=== PATIENT | male | born 2005 | race African-American/Black ===

== ENCOUNTER 2024-11-14 14:48 | Emergency (ER) | payer OTHER, SELFPAY ==
[2024-11-14 15:02] VITALS: BP 118/62; PULSE 83; RESP 16; TEMP 36.6; O2SAT 97; BMI 24.3
--- NOTE | 2024-11-14 15:05 | EKG_ITS ---
[address] [address] Test Date: 2024-11-14 Pat Name: Eliel Tate Department: [facility] Room: Gender: Male Automatic Developer: MARTY : 2005 Requested By: Order Number: [id number] Reading MD: Hernandez Epps MD Measurements Intervals [place] Rate: 81 P: 36 IL: 146 QRS: 63 QRSD: 84 T: 51 QT: 340 QTc: 394 Interpretive Statements Normal sinus rhythm Electronically Signed On 11-14-2024 16:57:05 PDT by Hernandez Epps MD
[2024-11-14 22:02] VITALS: BP 128/61; PULSE 62; RESP 14; TEMP 37.4; O2SAT 100
[2024-11-14 23:16] LABS: Add Manual Diff / Slide Review NO; Basophils Absolute Auto 200 /uL (0-100); Basophils Percent Auto 1.4 % (0-2); Eosinophils Absolute Auto 600 /uL (0-450); Eosinophils Percent Auto 5.4 % (2-4); Hematocrit 42.4 % (41-53); Hemoglobin 14.1 g/dL (13.5-17.5); Lymphocytes Absolute Auto 1900 /uL (1100-4500); Lymphocytes Percent Auto 16.3 % (25-40); Mean Corpuscular HGB Conc 33.1 % (30-36); Mean Corpuscular Volume 84.5 fL (80-100); Monocytes Absolute Auto 1200 /uL (0-900); Neutrophils Absolute Auto 8000 /uL (1500-7000); Neutrophils Percent Auto 66.9 % (50-75); Platelet Count 245 X10^3/uL (150-400); Red Blood Cell Count 5.02 X10^6/uL (4.5-5.9); Red Cell Distribution Width 13.6 % (11.6-14.8)
[2024-11-14 23:29] LABS: Alanine Aminotransferase 11 IU/L (<50); Albumin 4.5 g/dL (3.5-5.0); Albumin Globulin Ratio 1.4 (1.0-2.8); Alkaline Phosphatase 65 U/L (38-126); Aspartate Aminotransferase 33 IU/L (17-59); BUN Creatinine Ratio 15.8 (6-22); Bilirubin Total 0.4 mg/dL (0.2-1.3); Blood Urea Nitrogen 18 mg/dL (9-20); Calcium 9.1 mg/dL (8.4-10.2); Carbon Dioxide 28 mmol/L (22-32); Chloride 101 mmol/L (98-107); Estimated Glomerular Filt Rate > 60 mL/min (>60); Globulin 3.2 g/dL (1.7-4.1); Glucose 115 mg/dL (70-99); HEMOLYSIS 19 (0-50); Potassium 3.6 mmol/L (3.4-5.1); Sodium 139 mmol/L (137-145); Total Protein 7.7 g/dL (6.3-8.2)
[2024-11-14 23:41] LABS: NT-proBNP (BNP-Adult 18+) < 20 pg/mL (<125); Troponin I < 0.012 ng/mL (0.01-0.034)
--- NOTE | 2024-11-15 00:15 | PC.NURSE ---
pt here for intermittent cp x 1.5 yrs, now resolved. pain is non radiating, nothing makes the pain worse or better, it is sharp sometimes and then dull at times. the pain is not caused by any specific trigger
--- NOTE | 2024-11-15 02:58 | ED.CHESTPAIN ---
HPI - Chest Pain General Chief Complaint: Chest Pain Stated Complaint: chest pain Time Seen by Provider: 11/14/24 22:36 Source: patient Mode of arrival: Ambulatory History of Present Illness HPI narrative: Otherwise healthy 19-year-old young man active [employer] [place], presents with intermittent episodes of sharp chest pain seemingly localized in the left anterior chest wall not associated with activity, eating, fasting or position. States sometimes it is very sharp and stabbing less for 5 minutes and other times more dull we will ask for 3 4 hours. This was the presentation tonight that caused him to come to the ER for further evaluation. He does not have a diagnosis of hypertension, no family history of heart disease of which he is aware. Related Data Allergies Allergy/AdvReac Type Severity Reaction Status Date / Time No Known Drug Allergies Allergy Verified 11/14/24 15:02 Review of Systems Review of Systems Narrative: Pertinent positive and negative findings as per HPI Patient History Smoking Status: Current some day smoker Exam Initial Vital Signs Initial Vital Signs: Vital Signs Temperature 97.8 F 11/14/24 15:02 Pulse Rate 83 11/14/24 15:02 Respiratory Rate 16 11/14/24 15:02 Blood Pressure 118/62 11/14/24 15:02 Pulse Oximetry 97 11/14/24 15:02 Oxygen Delivery Method Room Air 11/14/24 15:02 General: Healthy appearing, in no acute distress. Able to give a complete and coherent history. Well-nourished well-developed HEENT: Moist mucous membranes, normal sclera with reactive pupils, Neck: No JVD, supple Respiratory: Lungs are clear to auscultation, no wheezing no rales no rhonchi. Full and symmetrical air movement Chest: Some mild reproducible tenderness with palpation along the medial aspect of the left pectoralis muscle Cardiac: Regular rate and rhythm no murmurs no bruits Abdomen: Soft, nontender, no rebound or guarding, no flank pain Skin: Warm and dry, no rashes Neurologic: Grossly neurologically intact with no obvious asymmetries or abnormalities Extremities: No trauma, well perfused Psych: Cooperative, appropriate insight and affect Course Orders Ordered: ED Orders 11/14/24 23:00 Complete Blood Count AUTO DIFF Stat Comprehensive Metabolic Panel Stat NT-proBNP (BNP-Adult 18+) Stat Troponin I Stat Vital Signs Vital signs: Vital Signs - 8 hr 11/14/24 22:02 Temperature 99.3 F Pulse Rate 62 Respiratory Rate 14 Blood Pressure 128/61 Pulse Oximetry 100 Oxygen Delivery Method Room Air MDM - Chest Pain Lab Data 11/14/24 23:00 11/14/24 23:00 Labs: Lab Results 11/14/24 Range/Units 23:00 WBC 12.0 H (4.5-11.0) X10^3/uL RBC 5.02 (4.5-5.9) X10^6/uL Hgb 14.1 (13.5-17.5) g/dL Hct 42.4 (41-53) % MCV 84.5 (80-100) fL MCH 28.0 (26-34) PG MCHC 33.1 (30-36) % RDW 13.6 (11.6-14.8) % Plt Count 245 (150-400) X10^3/uL Neut % (Auto) 66.9 (50-75) % Lymph % (Auto) 16.3 L (25-40) % [place] % (Auto) 10.0 (3-14) % Eos % (Auto) 5.4 H (2-4) % Baso % (Auto) 1.4 (0-2) % Neut # (Auto) 8000 H (8240-0178) /uL Lymph # (Auto) 1900 (8391-1764) /uL [place] # (Auto) 1200 H (0-900) /uL Eos # (Auto) 600 H (0-450) /uL Baso # (Auto) 200 H (0-100) /uL Sodium 139 (137-145) mmol/L Potassium 3.6 (3.4-5.1) mmol/L Chloride 101 (98-107) mmol/L Carbon Dioxide 28 (22-32) mmol/L BUN 18 (9-20) mg/dL Creatinine 1.14 (0.66-1.25) mg/dL Estimated GFR > 60 (>60) mL/min BUN/Creatinine Ratio 15.8 (6-22) Glucose 115 H (70-99) mg/dL Calcium 9.1 (8.4-10.2) mg/dL Total Bilirubin 0.4 (0.2-1.3) mg/dL AST 33 (17-59) IU/L ALT 11 (<50) IU/L Alkaline Phosphatase 65 (38-126) U/L Troponin I < 0.012 (0.01-0.034) ng/mL NT-Pro-B Natriuret Pep < 20 (<125) pg/mL Total Protein 7.7 (6.3-8.2) g/dL Albumin 4.5 (3.5-5.0) g/dL Globulin 3.2 (1.7-4.1) g/dL Albumin/Globulin Ratio 1.4 (1.0-2.8) MDM Narrative Medical decision making narrative: 19-year-old gentleman with intermittent episodes of left-sided chest pain for approximately year and half. He had initially attributed at all to heartburn, despite the fact that there was no burning sensation, but after learning CPR realize that perhaps he should pay more attention to persistent left-sided chest pain and comes in for further evaluation. His workup was quite reassuring. He does have some mildly reproducible chest pain associated with his left pectoralis muscle and I suspect that his symptoms are most likely musculoskeletal related. I am seeing no evidence for acute coronary syndrome, infection, pericarditis, pneumonia, asthma or alternate explanations at this time CBC is unremarkable Chemistries show no acute abnormalities normal renal function Troponin is undetected ProBNP is not elevated EKG shows sinus rhythm at a rate of 81 with no ischemic changes Discussion: 19-year-old gentleman with a year and a half of intermittent episodes of mild left-sided sharp chest pain. I suspect that this is likely musculoskeletal in the absence of acute coronary syndrome, STEMI, significant anemia, infection or alternate explanations. Findings reviewed with the patient. There was no indication for hospitalization he is safe for discharge Discharge Plan Departure Patient Disposition: Home Clinical Impression: Atypical chest pain Instructions: DI for Atypical Chest Pain Activity Restrictions/Additional Instructions: Thank you for coming in today Your blood work was very reassuring. There was no sign of heart attack, heart attack like syndromes, enlarged heart, heart failure, infections, anemia or other explanation that would require further workup or hospitalization with these episodes of chest pain that you have experienced Typically, can be reproduced by pressing on your chest is not going to be your heart. Your description of your pain does not sound like heartburn. I suspect that much of your symptoms are related to musculoskeletal findings related to bones and muscles. If the symptoms last long enough can certainly try some ibuprofen for pain control. If you have new or worsening symptoms please feel free to return to the ER Stand Alone Forms: Patient Portal/API, Work Release Note
[2024-11-15 03:37] VITALS: BP 122/60; PULSE 68; RESP 16; O2SAT 100
== END 2024-11-15 03:38 | disposition home or self-care (01) ==
PROVIDERS: Emergency Provider Emergency Medicine
DX: R07.89 Other chest pain (principal)
CPT/HCPCS: 36415; 80053; 83880; 84484; 85025; 93005; 93010; 99281; 99284

== ENCOUNTER 2024-12-23 16:25 | Emergency (ER) | payer OTHER, SELFPAY ==
[2024-12-23 16:36] VITALS: BP 147/75; PULSE 82; RESP 18; TEMP 37; O2SAT 96; BMI 25.1
[2024-12-23 17:05] LABS: Add Manual Diff / Slide Review YES; Hematocrit 37.9 % (41-53); Hemoglobin 12.7 g/dL (13.5-17.5); Mean Corpuscular HGB Conc 33.6 % (30-36); Mean Corpuscular Hemoglobin 26.6 PG (26-34); Mean Corpuscular Volume 79.3 fL (80-100); Platelet Count 72 X10^3/uL (150-400)
[2024-12-23 17:22] LABS: Alanine Aminotransferase 29 IU/L (<50); Albumin 4.6 g/dL (3.5-5.0); Albumin Globulin Ratio 1.5 (1.0-2.8); Alkaline Phosphatase 83 U/L (38-126); Blood Urea Nitrogen 19 mg/dL (9-20); Calcium 9.8 mg/dL (8.4-10.2); Carbon Dioxide 24 mmol/L (22-32); Chloride 99 mmol/L (98-107); Estimated Glomerular Filt Rate > 60 mL/min (>60); Globulin 3.1 g/dL (1.7-4.1); Glucose 90 mg/dL (70-99); HEMOLYSIS < 15 (0-50); Potassium 4.0 mmol/L (3.4-5.1); Sodium 136 mmol/L (137-145); Total Protein 7.7 g/dL (6.3-8.2)
[2024-12-23 17:27] LABS: Atypical Lymphocytes Percent 46.0 %; Band Neutrophils Percent 9.0 % (3-7); Basophils Percent Manual 2.0 % (0-1); Eosinophils Percent Manual 1.0 % (2-4); Lymphocytes Percent Manual 17.0 % (25-45); Metamyelocytes Percent 3.0 % (-0); Monocytes Percent Manual 7.0 % (2-11); Neutrophils Absolute Manual 3144 /uL (3000-5900); Segmented Neutrophils Percent 15.0 % (38-70); Total Cells Counted 100
[2024-12-23 17:34] LABS: Anisocytosis 1+; Microcytosis 2+; Smudge Cells 2+
[2024-12-23 17:35] LABS: Procalcitonin 0.259 ng/mL (<0.5)
[2024-12-23 19:15] VITALS: BP 141/87; PULSE 90; RESP 16; O2SAT 99
--- NOTE | 2024-12-23 19:30 | PC.NURSE ---
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 Pt reports they gave him torodol this morning which helped to reduce pain, but pain still 6/10 worsened by movement and palpitation. Pt denies recent illness, trauma, or hx of any gout or immune disorders. pt denies other symptoms at this time.
--- NOTE | 2024-12-23 21:43 | ED_ITS ---
HPI - Recheck/Abnormal Lab/Rx General Chief Complaint: Recheck/Abnormal Lab/Rx Stated Complaint: Joint pain x4days, abnormal labs Time Seen by Provider: 12/23/24 20:03 Mode of arrival: Ambulatory History of Present Illness HPI narrative: 19-year-old right-handed male with no known history of arthritis problems, complains of 4 days duration of predominantly upper extremity polyarthralgias. No recent new activities or trauma. No fevers or chills. No recent cough or shortness of breath. No history of known STIs, no urethral discharge or history of chlamydia/gonorrhea. Seen in clinic, had lab draw apparently with some kind of abnormalities. No lab testing results brought here. Patient has not been referred yet to rheumatology. Here for further workup, unclear what workup was intended. There is no chemistry quality control technician on staff here. Related Data Allergies Allergy/AdvReac Type Severity Reaction Status Date / Time No Known Drug Allergies Allergy Verified 12/23/24 16:36 Patient History Social History Smoking Status: Never smoker Smoking Status: Never smoker Exam Narrative Exam Narrative: GENERAL: Well-developed patient, in mild distress. HEAD: Atraumatic. Normocephalic. EYES: Pupils equal round and reactive. Extraocular motions intact. No scleral icterus. No injection or drainage. ENT: Nose without bleeding, purulent drainage. Throat without erythema, tonsillar hypertrophy or exudate. Airway patent. NECK: Trachea midline. Non tender CARDIOVASCULAR: Regular rate and rhythm without murmurs, gallops, or rubs. RESPIRATORY: Clear to auscultation. Breath sounds equal bilaterally. No wheezes, rales, or rhonchi. GASTROINTESTINAL: Abdomen soft, non-tender, nondistended. EXTREMITIES: No edema or joint tenderness. No tenderness or effusion or warmth to wrist or finger joints, nor along elbows. Normal range of motion fingers hand wrist elbows shoulders. BACK: Nontender without deformity or crepitance. No flank tenderness. NEURO: AOx3. Motor functions grossly nonfocal. SKIN: No rash or erythema of visible areas Initial Vital Signs Initial Vital Signs: Vital Signs Temperature 98.6 F 12/23/24 16:36 Pulse Rate 82 12/23/24 16:36 Respiratory Rate 18 12/23/24 16:36 Blood Pressure 147/75 H 12/23/24 16:36 Pulse Oximetry 96 12/23/24 16:36 Oxygen Delivery Method Room Air 12/23/24 16:36 Course Orders Ordered: Discontinued Medications Naproxen (Naproxen 250 Mg Tablet) 500 mg PO NOW ONE Stop: 12/23/24 22:22 Last Admin: 12/23/24 22:40 Dose: 500 mg Documented By: MEHREEN Vital Signs Vital signs: Vital Signs - 8 hr 12/23/24 22:12 12/23/24 22:14 12/23/24 22:14 Pulse Rate 108 H 81 Blood Pressure 132/85 Pulse Oximetry 99 99 Oxygen Delivery Method 12/23/24 22:30 12/23/24 22:51 12/23/24 22:51 Pulse Rate 85 86 Blood Pressure 159/93 H Pulse Oximetry 98 99 Oxygen Delivery Method Room Air Room Air MDM - Recheck/Abnormal Lab/Rx Lab Data Attestation: I reviewed the patient's lab results. Lab results narrative: White blood cell count 75515, hemoglobin 12.7, platelets 72,000. Sodium 136, potassium 4.0, serum CO2 24. BUN 19 with creatinine 1.19. Glucose 90. Liver functions normal. CRP 1.8 slight elevation only. Procalcitonin 0.259 not elevated. 12/23/24 16:55 12/23/24 16:55 Labs: Lab Results 12/23/24 Range/Units 16:55 WBC 13.1 H (4.5-11.0) X10^3/uL RBC 4.77 (4.5-5.9) X10^6/uL Hgb 12.7 L (13.5-17.5) g/dL Hct 37.9 L (41-53) % MCV 79.3 L (80-100) fL MCH 26.6 (26-34) PG MCHC 33.6 (30-36) % RDW 14.1 (11.6-14.8) % Plt Count 72 L (150-400) X10^3/uL Neut % (Auto) Not Reportable Lymph % (Auto) Not Reportable [place] % (Auto) Not Reportable Eos % (Auto) Not Reportable Baso % (Auto) Not Reportable Lymph # (Auto) Not Reportable [place] # (Auto) Not Reportable Baso # (Auto) Not Reportable Total Counted 100 Seg Neutrophils % 15.0 L (38-70) % Band Neutrophils % 9.0 H (3-7) % Lymphocytes % (Manual) 17.0 L (25-45) % Atypical Lymphs % 46.0 H ( - 0) % Monocytes % (Manual) 7.0 (2-11) % Eosinophils % (Manual) 1.0 L (2-4) % Basophils % (Manual) 2.0 H (0-1) % Metamyelocytes % 3.0 H (-0) % Neutrophils # (Manual) 3144 (7472-3481) /uL Nucleated RBCs 1 H ( - 0) #/Diff Smudge Cells 2+ H RBC Morphology See below Anisocytosis 1+ H Microcytosis 2+ H ESR 16 H (0-15) MM/HR Sodium 136 L (137-145) mmol/L Potassium 4.0 (3.4-5.1) mmol/L Chloride 99 (98-107) mmol/L Carbon Dioxide 24 (22-32) mmol/L BUN 19 (9-20) mg/dL Creatinine 1.19 (0.66-1.25) mg/dL Estimated GFR > 60 (>60) mL/min BUN/Creatinine Ratio 16.0 (6-22) Glucose 90 (70-99) mg/dL Uric Acid 7.9 (3.5-8.5) mg/dL Calcium 9.8 (8.4-10.2) mg/dL Total Bilirubin 0.8 (0.2-1.3) mg/dL AST 50 (17-59) IU/L ALT 29 (<50) IU/L Alkaline Phosphatase 83 (38-126) U/L C-Reactive Protein 1.8 H (<1.0) mg/dL Total Protein 7.7 (6.3-8.2) g/dL Albumin 4.6 (3.5-5.0) g/dL Globulin 3.1 (1.7-4.1) g/dL Albumin/Globulin Ratio 1.5 (1.0-2.8) Procalcitonin 0.259 (<0.5) ng/mL Rheumatoid Factor < 8.6 (<12.0) IU/mL MDM Narrative Medical decision making narrative: 19-year-old male with polyarthritis predominantly upper extremity right-sided greater than the left. No fever. No joint effusions or problems with range of motion. Labs screening sent. Lab data: White blood cell count 15235, hemoglobin 12.7, platelets 72,000. Sodium 136, potassium 4.0, serum CO2 24. BUN 19 with creatinine 1.19. Glucose 90. Liver functions normal. CRP 1.8 slight elevation only. Procalcitonin 0.259 not elevated. Rheumatoid factor negative. We discussed urine GC chlamydia testing, he would not want await to produce a urine or wait for results, stated he would pursue this with his PCP at [facility]. Further screening arthritis related laboratory testing sent as send out (MARTINE), for follow up with PCP. Advised referral for rheumatology consultation. He will take [id number] ibuprofen or naproxen for now. Discharged home. Return precautions discussed. Discharge Plan Departure Patient Disposition: Home Clinical Impression: Polyarthralgia Activity Restrictions/Additional Instructions: Right-handed. Recent days pain to right upper extremity joints and left upper extremity joints, less so with lower extremity. No history of known rheumatoid arthritis, lupus, arthritis problems. Reported outside labs abnormal. White blood cell count 13,000 slight elevation only here. Other inflammatory markers CRP and procalcitonin not elevated. Unclear cause of the arthritis. Consider rheumatology consultation, though there is no one on staff here from rheumatology. You might need referral from your primary care provider through the [facility] clinic system. Fortunately right now you do not seem to have any significant tenderness on any your joint affected examinations, without obvious joint effusions, it is not seem to be any particular area to have to consider arthrocentesis at this time (sticking in a needle looking for inflammatory infectious changes.). Consider course of naproxen anti-inflammatory medication for now, 1 tablet twice daily. Prescription sent to your pharmacy. Follow up with your regular provider Thursday to facilitate referral to Rheumatology. Outside labs additionally sent, MARTINE (lupus) screen, rheumatoid factor blood draws, which are send out labs for here. Hopefully those can be followed up with the your regular provider in follow up. We discussed getting urine testing for gonorrhea/chlamydia screening, no urinalysis was obtained while in the emergency department. You decided that you wanted to get this done further as an outpatient and we will discuss this with your regular doctor. There is a form of arthritis that can happen in associated with sexually transmitted diseases such as gonorrhea/chlamydia. It is reasonable to complete screening as an outpatient for this as well. Consider taking ibuprofen or naproxen [id number] to control pain symptoms. Follow up with your regular provider on Thursday. Return to this/nearest emergency department for any change worsening symptoms or any concerns prior. Stand Alone Forms: Patient Portal/API
[2024-12-23 22:12] VITALS: PULSE 108; O2SAT 99
[2024-12-23 22:14] VITALS: BP 132/85; PULSE 81; O2SAT 99
[2024-12-23 22:30] VITALS: PULSE 85; O2SAT 98
[2024-12-23] MEDS: NAPROXEN 250 MG TABLET 500 MG PO (22:40)
[2024-12-23 22:51] VITALS: BP 159/93; PULSE 86; O2SAT 99
[2024-12-23 23:21] LABS: Uric Acid 7.9 mg/dL (3.5-8.5)
[2024-12-28 11:36] LABS: ANA Screen, IFA Negative (.)
== END 2024-12-23 23:37 | disposition home or self-care (01) ==
PROVIDERS: Emergency Medicine; Emergency Provider Emergency Medicine
DX: M25.50 Pain in unspecified joint (principal)
CPT/HCPCS: 80053; 84145; 84550; 85007; 85025; 85651; 86038; 86140; 86430; 99283